=== PATIENT | female | born 1985 | race Caucasian/White ===

== ENCOUNTER 2017-02-03 13:04 | Emergency (ER) | payer MEDICAID ==
[~2017-02-03] VITALS: Ht 157.5 cm; Wt 72.5 kg
[~2017-02-03 13:04] MED LIST: IBUP-1542 PO
[2017-02-03 13:06] VITALS: Ht 157.5 cm; Wt 72.5 kg
[2017-02-03] MEDS ORDERED: KETOROLAC 30 MG INJ IM STA (14:10)
[2017-02-03] MEDS ORDERED: DIAZEPAM 2 MG TAB PO ONE (15:30)
--- NOTE | 2017-02-03 15:32 | RADRPT ---
PROCEDURE: XR Lumbar Spine. CLINICAL INDICATION: The TECHNIQUE: Three views. AP, lateral and cone-down lateral view of the lumbar spine were obtained. COMPARISON: No prior studies are available for comparison. FINDINGS: There is normal stature and alignment of the vertebrae. There is no fracture. There is no lytic or blastic lesion. The disk height is normal. The paravertebral soft tissues are unremarkable. IMPRESSION: 1. Unremarkable images of the lumbar spine. RPTAT: QQ .Antonio Jimenez MD, MD Date Time Electronically viewed and signed by .Antonio Jimenez MD, MD on 02/03/2017 15:31 .R/
[2017-02-03] MEDS ORDERED: NAPR-260 PO (16:06)
[2017-02-03] MEDS ORDERED: CYCL-319 PO (16:06)
--- NOTE | 2017-02-03 16:16 | ERD ---
ER Documentation Chief Complaint Date/Time DATE: 02/03/17 TIME: 16:11 Chief Complaint low back pain from a fall yesterday HPI Patient is a 31-year-old female who presents to the ED with low back pain. She states that she was using a vacuum and developed pain in her low back after she bent down. States that she fell 1 week ago however she states that she did not have pain until she bent down today. Denies bowel or bladder incontinence. Denies headache or dizziness. Denies fever or chills. Denies radiation of pain. Denies chest pain or cough or shortness of breath. Denies leg pain or leg swelling. ROS All systems reviewed and are negative except as per history of present illness. Medications Home Meds Active Scripts Cyclobenzaprine Hcl* (Cyclobenzaprine Hcl*) 10 Mg Tablet, 10 MG PO TID, #15 TAB Prov:JUAN MIGUEL CONNORS PA-C 02/03/17 Naproxen* (Naprosyn*) 500 Mg Tablet, 500 MG PO BID Y for PAIN AND/OR INFLAMMATION, #30 TAB Prov:JUAN MIGUEL CONNORS PA-C 02/03/17 Ibuprofen* (Ibuprofen*) 600 Mg Tablet, 600 MG PO Q8 for 10 Days, TAB Prov:GISSELLE BOYD DO 06/08/16 Allergies Allergies: Coded Allergies: No Known Drug Allergy (Unverified Allergy, Unknown, 06/07/16) PMhx/Soc Medical and Surgical Hx: pt denies Medical Hx, pt denies Surgical Hx History of Surgery: Yes (tubal ligation) Anesthesia Reaction: No Hx Neurological Disorder: No Hx Respiratory Disorders: No Hx Cardiac Disorders: No Hx Psychiatric Problems: No Hx Miscellaneous Medical Probl: No Hx Alcohol Use: No Hx Substance Use: No Hx Tobacco Use: No Smoking Status: Never smoker FmHx Family History: No coronary disease, No diabetes, No other Physical Exam Vitals Vital Signs Date Time Temp Pulse Resp B/P Pulse Ox O2 Delivery O2 Flow Rate FiO2 02/03/17 13:06 97.8 71 18 103/51 97 Physical Exam GENERAL: Well-developed, well-nourished female. Appears in no acute distress. HEAD: Normocephalic, atraumatic. EYES: Pupils are equally reactive bilaterally. EOMs grossly intact. No conjunctival erythema. ENT: Moist mucous membranes. No uvula deviation. No kissing tonsils. No exudates. NECK: Supple. No lymphadenopathy or thyromegaly. No meningismus. negative kernig. negative brudinski. LUNG: Clear to auscultation bilaterally. No rhonchi, wheezing, rales or coarse breath sounds. HEART: Regular rate and rhythm. No murmurs, rubs or gallops. ABDOMEN: No scars, ecchymosis or rashes noted. Soft, nontender, and nondistended. Positive bowel sounds in all four quadrants. No rebound tenderness , no guarding. (-) McBurneys point tenderness. No CVA tenderness. BACK: No midline tenderness. No spinal tenderness. Tenderness to the muscles on the lumbar. No step-offs or deformities. No open wounds or lacerations. No erythema. No warmth. Extremities: Equal pulses bilaterally. No peripheral clubbing, cyanosis or edema. No unilateral leg swelling. NEUROLOGIC: Alert and oriented. Moving all four extremities. 5/5 strength in all extremities. Normal speech. Steady gait. SKIN: Normal color. Warm and dry. No rashes or lesions. Capillary refill < 2 seconds Results 24 hrs Current Medications Medications (Trade) Dose Ordered Sig/Odilia Route PRN Reason Start Time Stop Time Status Last Admin Dose Admin Ketorolac Tromethamine (Toradol) 30 mg ONCE STAT IM 02/03/17 14:10 02/03/17 14:11 DC 02/03/17 14:49 Diazepam (Valium) 2 mg ONCE ONCE PO 02/03/17 15:30 02/03/17 15:31 DC 02/03/17 15:45 Procedures/MDM ER COURSE: I kept the patient and/or family informed of laboratory and diagnostic imaging results throughout the emergency room course. IMAGING STUDIES [place] [id number] Radiology Main Line: [phone] DIAGNOSTIC IMAGING REPORT Patient: TERRY MATHEWS : 1985 Age: 31 Sex: F MR #: [id number] DOS: 02/03/17 1410 Ordering MD: JUAN MIGUEL CONNORS PAJuan C Location: [facility] Room/Bed: PROCEDURE: XR Lumbar Spine. CLINICAL INDICATION: The TECHNIQUE: Three views. AP, lateral and cone-down lateral view of the lumbar spine were obtained. COMPARISON: No prior studies are available for comparison. FINDINGS: There is normal stature and alignment of the vertebrae. There is no fracture. There is no lytic or blastic lesion. The disk height is normal. The paravertebral soft tissues are unremarkable. IMPRESSION: 1. Unremarkable images of the lumbar spine. RPTAT: QQ .Antonio Jimenez MD, Date Time Electronically viewed and signed by .Antonio Jimenez MD, MD on 02/03/2017 15:31 .R/ CC: JUAN MIGUEL CONNORS PA-C MEDICAL DECISION MAKING: This is a 31-year-old female who presents with low back pain. Vital signs were reviewed. Patient is afebrile. Patient is not hypoxic. Patient is nontoxic or ill-appearing x-rays of by radiologist unremarkable for fracture dislocation. Patient likely has muscle strain versus muscle sprain. Low suspicion for cauda equine syndrome, spinal epidural hematoma, spinal epidural abscess, osteomyelitis, fracture, aortic dissection, AAA, pyelonephritis, nephrolithiasis , septic stone, obstructed stone. Negative test. Patient was given Toradol and Valium which she had improvement in her symptoms. DISCHARGE: At this time, patient is stable for discharge and outpatient management with no new complaints during the ER course. Patient was sent home with Patrick and a copy of imaging report. Patient will be discharged home with instructions to recheck for new or worsening symptoms such as fever, nausea, weakness, LOC and to follow up with primary care in the next 1-2 days. Patient was advised to return to the ER for any new or worsening symptoms. Plan was discussed and patient and/or family understands and agrees. Home instructions were given. Departure Diagnosis: Primary Impression: Back pain Back pain location: low back pain Chronicity: acute Back pain laterality: unspecified Sciatica presence: unspecified whether sciatica present Qualified Code: M54.5 - Acute low back pain, unspecified back pain laterality, with sciatica presence unspecified Condition: Stable Patient Instructions: Back Pain (Acute Or Chronic) [facility] Usted se mello hecho un examen mdico de control que le indica que no est en cem condicin que requiera tratamiento urgente en el Departamento de Emergencia. Un estudio ms profundo y el tratamiento de rockwell condicin pueden esperar sin ningn riesgo hasta que usted sea atendida/o en el consultorio de rockwell mdico o cem cl amy. Es responsabilidad suya arreglar cem lilibeth para el seguimiento del yuliana. MANEJO DE CONDICIONES NO URGENTES EN EL FUTURO 1) Si usted tiene un mdico de atencin primaria: Usted debera llamar a rockwell mdico de atencin primaria antes de venir al departamento de emergencia. Despus de las horas de consultorio, rockwell doctor o rockwell asociado/a est disponible por telfono. El mdico o enfermero de maria t en el servicio telefnico puede asesorarle por cris medio para atender el problema, o yuliana contrario se puede programar cem lilibeth. 2) Si usted no tiene un mdico de atencin primaria: Llame al mdico o clnica de referencia que aparece abajo joesph las horas de consultorio para hacer cem lilibeth para que le vean. CLINICAS: [facility] [phone] [facility] [phone] [facility] [phone] [facility] [phone] [facility] [phone] [address] [facility] [phone] [address] Additional Instructions: Llame al doctor MAANA y néstor cem LILIBETH PARA DENTRO DE 1-2 [place].Dgale a la secretaria que nosotros le instruimos hacer esta lilibeth.Avise o llame si rockwell condicin se empeora antes de la lilibeth. Regresa aqui si peor o no mejor. JUAN MIGUEL CONNORS PA-C Feb 03, 2017 16:16
== END 2017-02-03 16:32 | disposition home or self-care (01) ==
LOC: FTE 13:04
DX: M54.5 Low back pain (principal)
CPT/HCPCS: 72100; J1885; Z7610; 96372